=== PATIENT | female | born 1975 | race Caucasian/White ===

== ENCOUNTER → 2021-07-01 | Outpatient (CLI) | payer OTHER | END | disposition home or self-care (01) | LOC: OIH 13:13 | PROVIDERS: ATTEND Family Medicine | DX: Z13.6 Encounter for screening for cardiovascular disorders (principal) | CPT/HCPCS: 75571 ==

== ENCOUNTER 2022-08-31 16:26 | Emergency (ER) | payer BC ==
[~2022-08-31] VITALS: Ht 165.1 cm; Wt 126.1 kg
[2022-08-31 16:27] VITALS: BP 150/87
[2022-08-31 17:29] LABS: BASOPHILS % (AUTO) 0.5 % (0.0-5.0); EOSINOPHILS % (AUTO) 0.8 % (0.0-8.0); HEMATOCRIT 37.3 % (36-48); LYMPHOCYTES % (AUTO) 18.4 % (21.0-51.0); MEAN CORPUSCULAR HEMOGLOBIN 29.8 pg (27.0-33.0); MEAN CORPUSCULAR HGB CONC 33.5 g/dL (32.0-36.0); MEAN CORPUSCULAR VOLUME 88.8 fL (79-99); MONOCYTES % (AUTO) 8.7 % (3.0-13.0); NEUTROPHILS % (AUTO) 71.3 % (40.0-77.0); PLATELET COUNT (AUTO) 315 K/uL (130-400); RED CELL DISTRIBUTION WIDTH 12.3 % (11.0-15.5); WHITE BLOOD COUNT (AUTO) 9.2 K/uL (4.8-10.8)
[2022-08-31 17:38] LABS: CARBON DIOXIDE 26 mmol/L (21-32); CHLORIDE 105 mmol/L (101-111); CREATININE 1.1 mg/dL (0.5-1.5); GLOMERULAR FILTR. RATE CALC 62 mL/min (>90); GLUCOSE,RANDOM 103 mg/dL (70-105); POTASSIUM 3.5 mmol/L (3.5-5.1); SODIUM SERUM 139 mmol/L (136-145); UREA NITROGEN, BLOOD 10 mg/dL (7-18)
[2022-08-31 17:43] LABS: ALANINE AMINOTRANSFERASE 21 U/L (12-78); ALBUMIN 3.6 g/dL (3.5-5.0); ASPARTATE AMINOTRANSFERASE 13 U/L (10-37); TOTAL PROTEIN, SERUM 6.9 g/dL (6.0-8.3)
[2022-08-31] MEDS ORDERED: MAG/ALUM/SIMETH 30 ML UDCUP PO ONE (18:00)
[2022-08-31] MEDS ORDERED: LIDOCAINE HCL 2% VISCOUS 15 ML UDCUP PO ONE (18:00)
[2022-08-31 18:17] LABS: LIPASE < 50 U/L (114-286)
== END 2022-08-31 19:16 | disposition home or self-care (01) ==
LOC: EDH 16:26
DX: K76.0 Fatty (change of) liver, not elsewhere classified (principal); R10.9 Unspecified abdominal pain; Z88.0 Allergy status to penicillin; Z88.2 Allergy status to sulfonamides; Z88.8 Allergy status to other drugs, medicaments and biological substances
CPT/HCPCS: 36415; 76705; 80053; 83690; 84484; 85025; 93005

== ENCOUNTER 2022-10-02 06:49 | Day surgery (SDC) | payer BC ==
[2022-09-26 12:59] VITALS: BP 130/74
[2022-10-02] VITALS (18 sets, daily range): BP systolic 122–139; BP diastolic 58–74
[~2022-10-02] VITALS: Ht 165.1 cm; Wt 123.9 kg
[~2022-10-02 06:49] MED LIST: ALBUTEROL IH; CEFAZOLIN SODIUM 1 GM VIAL ONE; DICY10CA13 PO; ESCI20TA38 PO; LACTATED RINGERS 1000ML 1,000 ML IV ONE; LEVE500T19 PO; LEVO100C4 PO; LINA145C PO; PANT40TA54 PO; SYMBICORT IH; TOPI-255 PO
[2022-10-02] MEDS ORDERED: VANCOMYCIN 1G/250ML KIT 250 ML IV ONE (06:52)
[2022-10-02] MEDS ORDERED: LEVOFLOXACIN 500 MG/D5W 100 ML 100 ML ONE (07:04)
[2022-10-02] MEDS ORDERED: PROPOFOL 10 MG/ML 20ML VIAL IV ONE (07:21)
[2022-10-02] MEDS ORDERED: SUCCINYLCHOLINE CHLORIDE 20 MG/ML 10 ML VIAL ONE (07:21)
[2022-10-02] MEDS ORDERED: LIDOCAINE PF 100MG/5ML (2%) SYRINGE 5ML ONE ×2 (07:21→08:45)
[2022-10-02] MEDS ORDERED: GLYCOPYRROLATE 1 MG/5 ML SYRINGE ONE (07:21)
[2022-10-02] MEDS ORDERED: ONDANSETRON 4MG INJ ONE (07:21)
[2022-10-02] MEDS ORDERED: DEXAMETHASONE SOD PHOSPHATE 10MG/ML 1ML VIAL ONE (07:21)
[2022-10-02] MEDS ORDERED: MIDAZOLAM HCL 1 MG/ML 2ML VIAL ONE (07:22)
[2022-10-02] MEDS ORDERED: NEOSTIGMINE 5MG/5ML SYR IV ONE (07:22)
[2022-10-02] MEDS ORDERED: ROCURONIUM 10MG/1ML SYR 10 MG/ML ML ONE ×2 (07:22→08:31)
[2022-10-02] MEDS ORDERED: FENTANYL CITRATE PF 50 MCG/1 ML 2ML VIAL ONE (07:22)
[2022-10-02] MEDS ORDERED: IOHEXOL-350 50ML VIAL IV ONE (08:05)
[2022-10-02] MEDS ORDERED: BUPIVACAINE/PF 0.5% 30ML VIAL ONE (08:11)
[2022-10-02] MEDS ORDERED: BUPIVACAINE/PF 0.5% 30ML VIAL INJ ONE (08:15)
[2022-10-02] MEDS ORDERED: MORPHINE 2 MG SYG ONE ×2 (09:33→09:40)
== END 2022-10-02 11:00 | disposition home or self-care (01) ==
LOC: DAH 06:49
PROVIDERS: ATTEND Surgery
DX: K81.1 Chronic cholecystitis (principal); Z20.822 Contact with and (suspected) exposure to COVID-19; K82.8 Other specified diseases of gallbladder; K42.9 Umbilical hernia without obstruction or gangrene; F41.9 Anxiety disorder, unspecified; F32.A Depression, unspecified; E03.9 Hypothyroidism, unspecified; E66.01 Morbid (severe) obesity due to excess calories; G40.909 Epilepsy, unspecified, not intractable, without status epilepticus; M19.90 Unspecified osteoarthritis, unspecified site; M79.7 Fibromyalgia; J45.909 Unspecified asthma, uncomplicated; Z98.890 Other specified postprocedural states; Z98.49 Cataract extraction status, unspecified eye; Z90.89 Acquired absence of other organs; Z88.0 Allergy status to penicillin; Z88.8 Allergy status to other drugs, medicaments and biological substances; Z68.42 Body mass index [BMI] 45.0-49.9, adult; Z88.2 Allergy status to sulfonamides; Z83.3 Family history of diabetes mellitus; Z82.3 Family history of stroke; Z83.49 Family history of other endocrine, nutritional and metabolic diseases; Z80.0 Family history of malignant neoplasm of digestive organs
CPT/HCPCS: 87426; 81025 ×2; 49591; 47562; A6260; A4223 ×2; A4663; J7030; J7120 ×2; A4215 ×2; J3010; J3490 ×3; J1100; J2710; J1956; J0330; J2270 ×2; J2001 ×2; J2250; J2704; J2405; J3370; Q9967; C1769 ×3; G0168; A4649 ×2; A4222; A4600; J0690

== ENCOUNTER → 2023-11-11 | Outpatient (CLI) | payer OTHER ==
[~2023-11-11] MED LIST changes: -CEFAZOLIN SODIUM 1 GM VIAL ONE; -DICY10CA13 PO; +DICY10CA2 PO; -LACTATED RINGERS 1000ML 1,000 ML IV ONE; -TOPI-255 PO; +TOPI-97 PO
== END | disposition home or self-care (01) ==
LOC: RAH 10:54
PROVIDERS: ATTEND Internal Medicine Gastroenterology
DX: R10.13 Epigastric pain (principal); R14.0 Abdominal distension (gaseous); R11.0 Nausea
CPT/HCPCS: 78264; A9541